=== PATIENT | female | born 1990 | race Hispanic/Latino ===

== ENCOUNTER 2018-01-23 16:09 | Emergency (ER) | payer OTHER ==
[2018-01-23 16:21] VITALS: BP 130/85; PULSE 90; RESP 18; O2SAT 100
[2018-01-23 16:22] VITALS: TEMP 97.9
[2018-01-23] MEDS ORDERED: PROPARACAINE/FLUORESCEIN SOD 100 DROP/5 ML BOTTLE OD STA (16:44)
[2018-01-23] MEDS ORDERED: Tdap Vaccine 0.5 ml Vial (10-64 yrs) IM ONE ×2 (16:47→17:08)
--- NOTE | 2018-01-23 16:56 | ED PDOC ---
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 Patient states that around noon today she was walking outside and the wind blew something into her eye. She tried to remove it at home but has been unsuccessful. Patient states she applied Visine with no relief of symptoms. She denies vision changes, discharge, or use of glasses/contacts. No other complaints. Her last normal menstrual period is current. PMD: Steve in [place], [place] Past Medical History Reviewed: Historical Data, Nursing Documentation, Vital Signs Vital Signs: Last Vital Signs Temp 97.9 F 01/23/18 16:18 Pulse 90 01/23/18 16:18 Resp 18 01/23/18 16:18 BP 130/85 01/23/18 16:18 Pulse Ox 100 01/23/18 16:18 - Medical History PMH: No Chronic Diseases - Surgical History Surgical History: No Surg Hx - Family History Family History: States: Unknown Family Hx - Home Medications Home Medications: Ambulatory Orders Medication Instructions Recorded RX: Tobramycin 0.3% [Tobrex 0.3% 1 drop OD Q6 #1 bottle 01/23/18 [facility]] - Allergies Allergies/Adverse Reactions: Allergies Allergy/AdvReac Type Severity Reaction Status Date / Time Penicillins Allergy RASH Verified 01/23/18 16:31 Review of Systems ROS Statement: Except As Marked, All Systems Reviewed And Found Negative Eyes: Positive for: Pain. Negative for: Vision Change, Other (discharge) Physical Exam - Reviewed Nursing Documentation Reviewed: Yes Vital Signs Reviewed: Yes - Physical Exam Comments: GENERAL APPEARANCE: Patient is awake, alert, oriented x 3, in no acute distress. HEENT: (-) facial swelling and erythema, (-) facial blisters. (-) periorbital edema (-) periorbital erythema VISUAL ACUITIES: Left eye: 20/ 25 ; Right eye: 20/ 25 . LIDS & LASHES: Normal. (-) crusting PUPILS: PERRL. EOM's: Intact and painless. LID EVERSION: (+) visualized foreign body: 1mm x 1mm small black foreign body interior upper lid CONJUNCTIVAE: diffuse conjuctival injection of right eye. CORNEA: (-) infiltrate. ANTERIOR CHAMBER: (-) hyphema. FUNDUSCOPIC: (-) hemorrhage. FLUORESCEIN: (-) uptake. CARDIC: (-) irregularity RESPIRATORY: lungs clear to auscultation bilaterally. - ECG O2 Sat by Pulse Oximetry: 100 (RA) Pulse Ox Interpretation: Normal Medical Decision Making Medical Decision Making: Impression: foreign body of eye r/o abrasion Time: 16:45 Initial Plan: --Tetanus booster --Flucaine eye drops 1735 Small black 1mm x 1mm foreign body removed from interior upper eye lid with cotton tip applicator. No fluorescein uptake. 1830 Patient reports significant improvement of presenting symptoms. On exam, patient remains AAOx3, in no acute distress. Lungs clear to auscultation, cardiac RRR, repeat neuro exam shows no focal findings. Vitals stable. Patient will be supplied with Rx for Tobramycin drops to use if irritation persists in the morning. Lab/Diagnostic results d/w the patient in great detail. Diagnosis of foreign body removal from eye d/w the patient. Based on history, exam and diagnostic results, plan will be for outpatient follow up with ophtho. Patient instructed to follow-up with pmd / referral provided / the clinic in 1- 2 days without fail. Advised to take medication as prescribed. Return to the emergency room at any time for any new or worsening symptoms. Patient states she fully agrees with and understands discharge instructions. States that she agrees with the plan and disposition. Verbalized and repeated discharge instructions and plan. I have given the patient opportunity to ask any additional questions. Scribe Attestation: Documented by Charles Holman, acting as a scribe for Gali Campbell PA-C Provider Scribe Attestation: All medical record entries made by the Scribe were at my direction and personally dictated by me. I have reviewed the chart and agree that the record accurately reflects my personal performance of the history, physical exam, medical decision making, and the department course for this patient. I have also personally directed, reviewed, and agree with the discharge instructions and disposition. Disposition - Clinical Impression Clinical Impression: Foreign body in eye, Eye irritation - Patient ED Disposition Is Patient to be Admitted: No Counseled Patient/Family Regarding: Studies Performed, Diagnosis, Need For Followup, Rx Given - Disposition Referrals: Juan Treadwell MD [Staff Provider] - Disposition: Routine/Home Disposition Time: 18:30 Condition: STABLE Additional Instructions: The emergency medical care you received today was directed at your acute symptoms. If you were prescribed any medication, please fill it and take as directed. It may take several days for your symptoms to resolve. Return to the Emergency Department if your symptoms worsen, do not improve, or if you have any other problems. Please contact your doctor in 2 days for re-evaluation and follow up / or call one of the physicians/clinics you have been referred to that are listed on the Patient Visit Information form that is included in your discharge packet. Bring any paperwork you were given at discharge with you along with any medications you are taking to your follow up visit. Our treatment cannot replace ongoing medical care by a primary care provider (PCP) outside of the emergency department. Prescriptions: RX: Tobramycin 0.3% [Tobrex 0.3% Ophth Soln] 1 drop OD Q6 #1 bottle Instructions: How to Use Eye Drops, Foreign Body in Eye Forms: [employer] (Syriac) Print Language: THAI - POA Present On Arrival: None
[2018-01-23] MEDS ORDERED: PROPARACAINE/FLUORESCEIN SOD 100 DROP/5 ML BOTTLE ONE (17:08)
== END 2018-01-23 18:49 | disposition home or self-care (01) ==
LOC: H.ER 16:09
DX: T15.01XA Foreign body in cornea, right eye, initial encounter (principal); Z88.0 Allergy status to penicillin